=== PATIENT | male | born 1970 | race Caucasian/White ===

== ENCOUNTER 2021-08-11 15:09 | Emergency (ER) | payer BC ==
[2021-08-11] MEDS ORDERED: Ondansetron 4 MG/2 ML SDV IVPUSH ONE (15:27)
[2021-08-11] MEDS ORDERED: Sodium Chloride 0.9% 1,000 ML IV STA (15:27)
[2021-08-11] MEDS ORDERED: HYDROmorphone 0.5 MG/0.5 ML Syringe IVPUSH ONE ×2 (15:27→17:22)
[2021-08-11] MEDS: Sodium Chloride 0.9% 10 ML Syringe FLUSH PRN ×2 (16:00→17:50)
[2021-08-11] MEDS ORDERED: Ondansetron 4 MG/2 ML SDV IVPUSH PRN (20:24)
[2021-08-11] MEDS: HYDROmorphone 0.5 MG/0.5 ML Syringe IVPUSH PRN (21:07)
[2021-08-12] MEDS: HYDROmorphone 0.5 MG/0.5 ML Syringe IVPUSH PRN ×2 (10:25→12:29)
[2021-08-12] MEDS ORDERED: Sodium Chloride 0.9% 1,000 ML IV SCH (11:45)
== END 2021-08-12 12:30 ==
LOC: JD.ED 15:09
DX: U07.1 COVID-19 (principal); N17.9 Acute kidney failure, unspecified; I12.9 Hypertensive chronic kidney disease with stage 1 through stage 4 chronic kidney disease, or unspecified chronic kidney disease; N18.9 Chronic kidney disease, unspecified; Q61.2 Polycystic kidney, adult type; M10.9 Gout, unspecified; Z79.899 Other long term (current) drug therapy
CPT/HCPCS: 36415; 74176; 80053; 81001; 83690; 85025; 86140; 87635; 96361; 96374; 96375; 96376; 99285; J1170; J2405; J3490; J7030; 99284; U0002

== ENCOUNTER 2021-09-30 06:56 | Day surgery (SDC) | payer BC ==
[~2021-09-30 06:56] MED LIST: Lactated Ringers 1,000 ML IV SCH; Lidocaine 1%/Sod Bicarbonate in NS 8.4% 1 ML Syringe IDERM PRN; Sodium Chloride 0.9% 1,000 ML IV SCH; Sodium Chloride 0.9% 10 ML Syringe FLUSH PRN; Sodium Chloride 0.9% 10 ML Syringe FLUSH SCH
[2021-09-30] MEDS ORDERED: Propofol 200 MG/20 ML SDV ONE ×3 (08:25→09:57)
[2021-09-30] MEDS ORDERED: Midazolam 1 MG/ML 2 ML SDV ONE (08:25)
== END 2021-09-30 11:10 | disposition home or self-care (01) ==
LOC: JD.SDS 06:56
PROVIDERS: ATTEND Surgery
DX: Z12.11 Encounter for screening for malignant neoplasm of colon (principal); D12.3 Benign neoplasm of transverse colon; K57.30 Diverticulosis of large intestine without perforation or abscess without bleeding; Q61.3 Polycystic kidney, unspecified; I10 Essential (primary) hypertension; I12.9 Hypertensive chronic kidney disease with stage 1 through stage 4 chronic kidney disease, or unspecified chronic kidney disease; N18.4 Chronic kidney disease, stage 4 (severe); E78.2 Mixed hyperlipidemia; N25.81 Secondary hyperparathyroidism of renal origin; Z86.16 Personal history of COVID-19; Z79.899 Other long term (current) drug therapy
CPT/HCPCS: 45380; 45381; 45385; J2250; J2704; J7030; 00812